=== PATIENT | female | born 1985 | race Caucasian/White ===

== ENCOUNTER 2019-09-13 15:09 | Emergency (ER) | payer SELFPAY ==
[~2019-09-13] VITALS: Ht 172.7 cm; Wt 86.4 kg
[2019-09-13 15:13] VITALS: BP 228/131
--- NOTE | 2019-09-13 15:40 | PHYS DOC ---
Past Medical History Past Medical History: Hypertension Past Surgical History: Hysterectomy Smoking Status: Never Smoker Alcohol Use: None General Adult EDM: Chief Complaint: SHOULDER INJURY HPI: HPI: Patient is a 34 year old female with history of hypertension who presents to the ED today complaining of moderate pain to the right shoulder that began couple minutes ago after she lifted a dresser. Patient reports the pain is sharp constant and worse on range of motion. Review of Systems: Review of Systems: Constitutional: Denies fever or chills. [] Musculoskeletal: Reports right shoulder pain Integument: Denies rash. [] Neurologic: Denies headache, focal weakness or sensory changes. [] Psychiatric: Denies depression or anxiety. [] Heart Score: Risk Factors: Risk Factors: DM, Current or recent (<one month) smoker, HTN, HLP, family history of CAD, obesity. Risk Scores: Score 0 - 3: 2.5% MACE over next 6 weeks - Discharge Home Score 4 - 6: 20.3% MACE over next 6 weeks - Admit for Clinical Observation Score 7 - 10: 72.7% MACE over next 6 weeks - Early Invasive Strategies Allergies: Allergies: Allergies Coded Allergies Type Severity Reaction Last Updated Verified ketorolac Allergy Unknown facial swelling 09/13/19 Yes metoprolol Allergy Unknown Heart racing 09/13/19 Yes Physical Exam: PE: Constitutional: Well developed, well nourished, no acute distress, non-toxic appearance. [] Skin: Warm, dry, no erythema, no rash. [] Back: No tenderness, no CVA tenderness. [] Extremities: Right ankle with no obvious deformity, no tenderness, full passive range of motion to the right upper extremity. Adequate sensation to the right upper extremity. +2 right radial pulse. Cap refill less than 2 seconds right fingers Neurologic: Alert and oriented X 3, normal motor function, normal sensory function, no focal deficits noted. [] Psychologic: Flat affect, patient tearful Current Patient Data: Vital Signs: Vital Signs Date Time Temp Pulse Resp B/P (MAP) Pulse Ox O2 Delivery O2 Flow Rate FiO2 09/13/19 15:13 98.1 105 14 228/131 (163) 97 Room Air 98.1 EKG: EKG: [] Radiology/Procedures: Radiology/Procedures: []PROCEDURE: SHOULDER 2+V RIGHT SHOULDER 2+V RIGHT History: Reason: pain HEARD POPPING WHILE LIFTING THIS AM COMPARISON: None FINDINGS: Note that the patient was unable to externally rotate, could be due to patient immobility and could limit evaluation of the proximal humerus. As seen, no evidence of acute fracture. No aggressive bone destruction. Joint spaces are intact. Mild degenerative changes at the AC joint with small undersurface osteophyte. No significant soft tissue abnormality. IMPRESSION: 1. Mild acromioclavicular joint inferior osteophytes. 2. No definite acute fracture or dislocation. Note that evaluation of the proximal humerus could be limited by inability of patient to externally rotate. Consider short-term follow-up radiographs or outpatient MRI if there is persistent clinical concern or persistent symptoms. Electronically signed by: Nehemias Chacon MD (09/13/2019 3:39 PM) [facility] DICTATED and SIGNED BY: NEHEMIAS CHACON MD DATE: 09/13/19 1539 Course & Med Decision Making: Course & Med Decision Making Pertinent Labs and Imaging studies reviewed. (See chart for details) This is a 34-year-old female patient presenting to the ED today with right shoulder pain that began after she lifted a dresser. Patient reports she is from [place]. Right shoulder x-rays interpreted by radiologist were negative for any acute fracture or dislocation. Provided a sling in the ED by the ED RN. Neurovascular exam intact after sling application. Ice elevation encouraged. Encouraged to follow-up with her own doctor in [place]. She was allergic to Toradol. She was discharged with gabapentin, Medrol Dosepak and Flexeril. Dragon Disclaimer: Dragon Disclaimer: This electronic medical record was generated, in whole or in part, using a voice recognition dictation system. Departure Departure Impression: Primary Impression: Right shoulder strain Qualified Codes: S46.911A - Strain of unspecified muscle, fascia and tendon at shoulder and upper arm level, right arm, initial encounter Disposition: 01 HOME, SELF-CARE Condition: STABLE Referrals: PIPO MUNOZ II, MD Follow-up in 1 week with your own doctor in [place] at the provided orthopedic doctor in [place] Patient Instructions: Shoulder Sprain Additional Instructions: You were evaluated in the emergency room for right shoulder pain, your right shoulder x-rays were negative for any acute fracture or dislocation. Please contact your own orthopedic doctor/ primary care doctor in [place] and follow-up in 1 week or the provided [place] orthopedic doctor. Try to ice and elevate the extremity. Scripts Gabapentin (GABAPENTIN ) 300 Mg Capsule 300 MG PO TID for NEUROGENIC PAIN, #20 CAP Prov: CRISPIN LUNDY APRN 09/13/19 Methylprednisolone (MEDROL) 4 Mg Tab.ds.pk 1 PKG PO UD, #1 PKG Prov: CRISPIN LUNDY APRN 09/13/19 Cyclobenzaprine Hcl (CYCLOBENZAPRINE HCL) 10 Mg Tablet 1 TAB PO TID, #30 TAB Prov: CRISPIN LUNDY APRN 09/13/19 Justicifation of Admission Dx: Justifications for Admission: Justification of Admission Dx: N/A CRISPIN LUNDY APRN Sep 13, 2019 15:40
[2019-09-13] MEDS ORDERED: GABA300C18 PO (16:02)
[2019-09-13] MEDS ORDERED: CYCL10TA2 PO (16:02)
[2019-09-13] MEDS ORDERED: METH4TAB2 PO (16:02)
== END 2019-09-13 16:10 | disposition home or self-care (01) ==
LOC: ER 15:09
DX: S46.811A Strain of other muscles, fascia and tendons at shoulder and upper arm level, right arm, initial encounter (principal); I10 Essential (primary) hypertension; Z90.710 Acquired absence of both cervix and uterus; Z88.8 Allergy status to other drugs, medicaments and biological substances; Z88.6 Allergy status to analgesic agent; X50.0XXA Overexertion from strenuous movement or load, initial encounter; Y93.89 Activity, other specified; Y92.89 Other specified places as the place of occurrence of the external cause; Y99.8 Other external cause status
CPT/HCPCS: 73030; 99283; A4565